=== PATIENT | male | born 1970 | race Caucasian/White ===

== ENCOUNTER → 2017-12-08 | Emergency (ER) | payer OTHER ==
[~2017-12-08] VITALS: Ht 175.3 cm; Wt 93.0 kg
[~2017-12-08] MED LIST: CRESTOR5 MG; SYNTHROID50 MCG
== END | disposition home or self-care (01) ==
LOC: ER 19:44
DX: S61.011A Laceration without foreign body of right thumb without damage to nail, initial encounter (principal); W26.0XXA Contact with knife, initial encounter; Y93.89 Activity, other specified; Y92.098 Other place in other non-institutional residence as the place of occurrence of the external cause; Y99.8 Other external cause status